=== PATIENT | female | born 1975 | race Caucasian/White ===

== ENCOUNTER 2019-09-30 17:36 | Emergency (ER) | payer OTHER ==
[~2019-09-30] VITALS: Ht 165.1 cm; Wt 100.0 kg
[2019-09-30] MEDS ORDERED: FLUO-191 PO (17:54)
[2019-09-30 21:08] VITALS: BP 141/84
== END 2019-09-30 21:13 | disposition home or self-care (01) ==
LOC: EMS 17:39
DX: F10.20 Alcohol dependence, uncomplicated (principal); F19.10 Other psychoactive substance abuse, uncomplicated; F17.210 Nicotine dependence, cigarettes, uncomplicated; F12.90 Cannabis use, unspecified, uncomplicated; F32.9 Major depressive disorder, single episode, unspecified; Z90.710 Acquired absence of both cervix and uterus; Z98.890 Other specified postprocedural states
CPT/HCPCS: 99406